=== PATIENT | female | born 1965 | race Asian ===

== ENCOUNTER 2021-02-09 08:05 | Outpatient (CLI) | payer BC ==
[~2021-02-09] VITALS: Ht 177.8 cm; Wt 157.4 kg
== END 2021-02-09 19:13 | disposition home or self-care (01) ==
LOC: DIABINF 08:05
PROVIDERS: ATTEND Internal Medicine Endocrinology, Diabetes & Metabolism
DX: E11.65 Type 2 diabetes mellitus with hyperglycemia (principal); E11.42 Type 2 diabetes mellitus with diabetic polyneuropathy; I10 Essential (primary) hypertension; E78.2 Mixed hyperlipidemia; G47.09 Other insomnia; E66.01 Morbid (severe) obesity due to excess calories; Z68.42 Body mass index [BMI] 45.0-49.9, adult
CPT/HCPCS: 82948; 96365; 96366; 96521; 99204; J1718; J1815

== ENCOUNTER 2021-02-11 07:27 | Outpatient (CLI) | payer BC ==
[~2021-02-11] VITALS: Ht 177.8 cm; Wt 157.4 kg
== END 2021-02-11 19:15 | disposition home or self-care (01) ==
LOC: DIABINF 07:27
PROVIDERS: ATTEND Internal Medicine Endocrinology, Diabetes & Metabolism
DX: E11.65 Type 2 diabetes mellitus with hyperglycemia (principal); E11.40 Type 2 diabetes mellitus with diabetic neuropathy, unspecified; I10 Essential (primary) hypertension; E78.2 Mixed hyperlipidemia; M79.7 Fibromyalgia; E66.01 Morbid (severe) obesity due to excess calories; Z68.42 Body mass index [BMI] 45.0-49.9, adult; G47.09 Other insomnia
CPT/HCPCS: 82948; 96365; 96366; 96521; 99214; J1815; J1817

== ENCOUNTER 2021-02-16 07:48 | Outpatient (CLI) | payer BC ==
[~2021-02-16] VITALS: Ht 177.8 cm; Wt 157.4 kg
== END 2021-02-16 21:24 | disposition home or self-care (01) ==
LOC: DIABINF 07:48
PROVIDERS: ATTEND Internal Medicine Endocrinology, Diabetes & Metabolism
DX: E11.65 Type 2 diabetes mellitus with hyperglycemia (principal); E11.40 Type 2 diabetes mellitus with diabetic neuropathy, unspecified; I10 Essential (primary) hypertension; E78.2 Mixed hyperlipidemia; M79.7 Fibromyalgia; E66.01 Morbid (severe) obesity due to excess calories; Z68.42 Body mass index [BMI] 45.0-49.9, adult; G47.09 Other insomnia
CPT/HCPCS: 82948; 96365; 96366; 96521; J1815; J1817

== ENCOUNTER 2021-02-18 07:56 | Outpatient (CLI) | payer BC ==
[~2021-02-18] VITALS: Ht 177.8 cm; Wt 157.4 kg
== END 2021-02-18 20:38 | disposition home or self-care (01) ==
LOC: DIABINF 07:56
PROVIDERS: ATTEND Internal Medicine Endocrinology, Diabetes & Metabolism
DX: E11.65 Type 2 diabetes mellitus with hyperglycemia (principal); E11.40 Type 2 diabetes mellitus with diabetic neuropathy, unspecified; I10 Essential (primary) hypertension; E78.2 Mixed hyperlipidemia; M79.7 Fibromyalgia; E66.01 Morbid (severe) obesity due to excess calories; Z68.42 Body mass index [BMI] 45.0-49.9, adult; G47.09 Other insomnia
CPT/HCPCS: 82948; 96365; 96366; 96521; J1815; J1817

== ENCOUNTER 2021-02-23 07:54 | Outpatient (CLI) | payer BC ==
[~2021-02-23] VITALS: Ht 177.8 cm; Wt 157.4 kg
== END 2021-02-23 19:52 | disposition home or self-care (01) ==
LOC: DIABINF 07:54
PROVIDERS: ATTEND Internal Medicine Endocrinology, Diabetes & Metabolism
DX: E11.65 Type 2 diabetes mellitus with hyperglycemia (principal); E11.40 Type 2 diabetes mellitus with diabetic neuropathy, unspecified; I10 Essential (primary) hypertension; E78.2 Mixed hyperlipidemia; M79.7 Fibromyalgia; E66.01 Morbid (severe) obesity due to excess calories; Z68.42 Body mass index [BMI] 45.0-49.9, adult; G47.09 Other insomnia
CPT/HCPCS: 82948; 96365; 96366; 96521; J1815

== ENCOUNTER 2021-02-25 07:37 | Outpatient (CLI) | payer BC ==
[~2021-02-25] VITALS: Ht 177.8 cm; Wt 157.5 kg
== END 2021-02-25 21:23 | disposition home or self-care (01) ==
LOC: DIABINF 07:37
PROVIDERS: ATTEND Internal Medicine Endocrinology, Diabetes & Metabolism
DX: E11.65 Type 2 diabetes mellitus with hyperglycemia (principal); E11.40 Type 2 diabetes mellitus with diabetic neuropathy, unspecified; I10 Essential (primary) hypertension; E78.2 Mixed hyperlipidemia; M79.7 Fibromyalgia; E66.01 Morbid (severe) obesity due to excess calories; Z68.42 Body mass index [BMI] 45.0-49.9, adult; G47.09 Other insomnia
CPT/HCPCS: 82948; 96365; 96366; 96521; J1815; J1817

== ENCOUNTER 2021-03-04 07:25 | Outpatient (CLI) | payer BC ==
[~2021-03-04] VITALS: Ht 177.8 cm; Wt 157.4 kg
== END 2021-03-04 20:12 | disposition home or self-care (01) ==
LOC: DIABINF 07:25
PROVIDERS: ATTEND Internal Medicine Endocrinology, Diabetes & Metabolism
DX: E11.65 Type 2 diabetes mellitus with hyperglycemia (principal); E11.40 Type 2 diabetes mellitus with diabetic neuropathy, unspecified; I10 Essential (primary) hypertension; E78.2 Mixed hyperlipidemia; M79.7 Fibromyalgia; E66.01 Morbid (severe) obesity due to excess calories; Z68.42 Body mass index [BMI] 45.0-49.9, adult; G47.09 Other insomnia
CPT/HCPCS: 82948; 96365; 96366; 96521; J1815; J1817

== ENCOUNTER 2021-03-11 07:37 | Outpatient (CLI) | payer BC ==
[~2021-03-11] VITALS: Ht 177.8 cm; Wt 157.5 kg
== END 2021-03-11 19:15 | disposition home or self-care (01) ==
LOC: DIABINF 07:37
PROVIDERS: ATTEND Internal Medicine Endocrinology, Diabetes & Metabolism
DX: E11.65 Type 2 diabetes mellitus with hyperglycemia (principal); E11.40 Type 2 diabetes mellitus with diabetic neuropathy, unspecified; I10 Essential (primary) hypertension; E78.2 Mixed hyperlipidemia; M79.7 Fibromyalgia; E66.01 Morbid (severe) obesity due to excess calories; Z68.42 Body mass index [BMI] 45.0-49.9, adult; G47.09 Other insomnia
CPT/HCPCS: 82948; 96365; 96366; 96521; J1815; J1817

== ENCOUNTER 2021-03-15 00:21 | Emergency (ER) | payer BC ==
[~2021-03-15] VITALS: Ht 177.8 cm; Wt 154.2 kg
[2021-03-15 01:06] LABS: PLATELET COUNT 264 K/uL (152-353)
[2021-03-15 01:15] LABS: POTASSIUM 4.3 mmol/L (3.6-5.2)
[2021-03-15] MEDS ORDERED: TRAMADOL HYDROC50 MG PO (01:34)
[2021-03-15 01:51] VITALS: BP 115/42; TEMP 98.8
== END 2021-03-15 01:51 | disposition home or self-care (01) ==
LOC: ED 00:21
PROVIDERS: Emergency Medicine
DX: S73.191A Other sprain of right hip, initial encounter (principal); E66.8 Other obesity
CPT/HCPCS: 36415; 80048; 83735; 85027; 96372; 99283; J2175; J2405

== ENCOUNTER 2021-03-18 07:18 | Outpatient (CLI) | payer BC ==
[~2021-03-18] VITALS: Ht 177.8 cm; Wt 157.5 kg
[~2021-03-18 07:18] MED LIST: TRAMADOL HYDROC50 MG PO
== END 2021-03-18 18:57 | disposition home or self-care (01) ==
LOC: DIABINF 07:18
PROVIDERS: ATTEND Internal Medicine Endocrinology, Diabetes & Metabolism
DX: E11.65 Type 2 diabetes mellitus with hyperglycemia (principal); E11.40 Type 2 diabetes mellitus with diabetic neuropathy, unspecified; I10 Essential (primary) hypertension; E78.2 Mixed hyperlipidemia; M79.7 Fibromyalgia; E66.01 Morbid (severe) obesity due to excess calories; Z68.42 Body mass index [BMI] 45.0-49.9, adult; G47.09 Other insomnia; S86.811A Strain of other muscle(s) and tendon(s) at lower leg level, right leg, initial encounter
CPT/HCPCS: 82948; 96365; 96366; 96521; J1815; J1817

== ENCOUNTER 2021-03-25 07:36 | Outpatient (CLI) | payer BC ==
[~2021-03-25] VITALS: Ht 177.8 cm; Wt 157.4 kg
== END 2021-03-25 22:16 | disposition home or self-care (01) ==
LOC: DIABINF 07:36
PROVIDERS: ATTEND Internal Medicine Endocrinology, Diabetes & Metabolism
DX: E11.65 Type 2 diabetes mellitus with hyperglycemia (principal); E11.40 Type 2 diabetes mellitus with diabetic neuropathy, unspecified; M79.7 Fibromyalgia; E66.01 Morbid (severe) obesity due to excess calories; Z68.42 Body mass index [BMI] 45.0-49.9, adult; E78.2 Mixed hyperlipidemia; G47.09 Other insomnia
CPT/HCPCS: 82948; 96365; 96366; 96521; J1815; J1817

== ENCOUNTER 2021-03-25 12:51 | Emergency (ER) | payer BC ==
[~2021-03-25] VITALS: Ht 177.8 cm; Wt 149.7 kg
[2021-03-25 13:00] VITALS: BP 158/78; TEMP 97.1
== END 2021-03-25 15:48 | disposition home or self-care (01) ==
LOC: ED 12:51
DX: M17.12 Unilateral primary osteoarthritis, left knee (principal)
CPT/HCPCS: 96372; 99283; J1885

== ENCOUNTER 2021-04-01 07:14 | Outpatient (CLI) | payer BC ==
[~2021-04-01] VITALS: Ht 177.8 cm; Wt 157.4 kg
== END 2021-04-01 11:30 | disposition home or self-care (01) ==
LOC: DIABINF 07:14
PROVIDERS: ATTEND Internal Medicine Endocrinology, Diabetes & Metabolism
DX: E11.40 Type 2 diabetes mellitus with diabetic neuropathy, unspecified (principal); Z68.42 Body mass index [BMI] 45.0-49.9, adult; I10 Essential (primary) hypertension; E78.2 Mixed hyperlipidemia; G47.09 Other insomnia
CPT/HCPCS: 82948; 96365; 96366; 96521; J1815; J1817

== ENCOUNTER 2021-04-08 07:29 | Outpatient (CLI) | payer BC ==
[~2021-04-08] VITALS: Ht 177.8 cm; Wt 157.4 kg
== END 2021-04-08 11:30 | disposition home or self-care (01) ==
LOC: DIABINF 07:29
PROVIDERS: ATTEND Internal Medicine Endocrinology, Diabetes & Metabolism
DX: E11.65 Type 2 diabetes mellitus with hyperglycemia (principal); E11.40 Type 2 diabetes mellitus with diabetic neuropathy, unspecified; M79.7 Fibromyalgia; E66.01 Morbid (severe) obesity due to excess calories; Z68.42 Body mass index [BMI] 45.0-49.9, adult; E78.2 Mixed hyperlipidemia; G47.09 Other insomnia
CPT/HCPCS: 82948; 96365; 96366; 96521; 99214; J1815; J1817

== ENCOUNTER 2021-04-15 07:33 | Outpatient (CLI) | payer BC ==
[~2021-04-15] VITALS: Ht 177.8 cm; Wt 157.5 kg
== END 2021-04-15 22:07 | disposition home or self-care (01) ==
LOC: DIABINF 07:33
PROVIDERS: ATTEND Nurse Practitioner
DX: E11.65 Type 2 diabetes mellitus with hyperglycemia (principal); E11.40 Type 2 diabetes mellitus with diabetic neuropathy, unspecified; M79.7 Fibromyalgia; E66.01 Morbid (severe) obesity due to excess calories; Z68.42 Body mass index [BMI] 45.0-49.9, adult; E78.2 Mixed hyperlipidemia; G47.09 Other insomnia
CPT/HCPCS: 82948; 96365; 96366; 96521; J1815; J1817